=== PATIENT | male | born 1950 | race Caucasian/White ===

== ENCOUNTER 2022-02-27 11:15 | Day surgery (SDC) | payer MEDICARE ==
[2022-02-27] MEDS ORDERED: LACTATED RINGERS 1,000 ML IV SCH (11:39)
[2022-02-27] MEDS ORDERED: LIDOCAINE 1% (10MG/ML) FOR IV START INTRADERMA PRN (11:39)
[2022-02-27 11:45] VITALS: TEMP 97.4
[2022-02-27] MEDS ORDERED: PROPOFOL 10 MG/ML 20 ML VIAL IV ONE (12:05)
[2022-02-27 12:31] VITALS: RESP 20
--- NOTE | 2022-02-27 12:37 | P.PCN ---
Date of Procedure: 02/27/22 Preoperative Diagnosis: Colon cancer screening, family history of colon cancer Postoperative Diagnosis: Colon cancer screening, family history of colon cancer, colon polyp Procedure(s) Performed: Colonoscopy with polypectomy Anesthesia: MAC Surgeon: Brandi Green Pathology: other Condition: stable Disposition: PACU Indications for Procedure: Patient presents for colon cancer screening. His older sister has a history of colon cancer Description of Procedure: The patient is taken to the endoscopy suite where colonoscope is passed per rectum to the cecum. He had an excellent prep. In the cecum there is a polyp about 9-10 mm in size which is slightly irregular. It is completely removed with a polypectomy snare. It sent for pathology. The rest of the colon was without evidence of mass lesion, ulcer, stricture, diverticuli or other mucosal abnormality. Some small internal hemorrhoids were seen on retroflexion of the scope. He tolerated the procedure without difficulty and was taken to recovery room in satisfactory condition. We will call him with the report of the polypectomy and let him know what his follow-up should be. Plan - Discharge Summary Discharge Rx Participant: No New Discharge Prescriptions: No Action Turmeric/Turmeric Root Extract [Turmeric 450-50 mg Capsule] 1 cap PO DAILY L.acidoph,Paracasei, B.lactis [Probiotic] 1 cap PO DAILY Vit C/E/Zn/Coppr/Lutein/Zeaxan [Preservision Areds 2 Chew Tab] 1 tab PO DAILY Sildenafil Citrate 50 mg PO DAILY PRN PRN Reason: ERECTILE DYSFUNTION Omeprazole 20 mg PO QAM Lisinopril-Hctz 20-12.5 mg [Zestoretic 20-12.5] 1 tab PO QAM Discharge Medication List L.acidoph,Paracasei, B.lactis [Probiotic] 1 cap PO DAILY 02/23/22 [History] Lisinopril-Hctz 20-12.5 mg [Zestoretic 20-12.5] 1 tab PO QAM 02/23/22 [History] Omeprazole 20 mg PO QAM 02/23/22 [History] Sildenafil Citrate 50 mg PO DAILY PRN 02/23/22 [History] Turmeric/Turmeric Root Extract [Turmeric 450-50 mg Capsule] 1 cap PO DAILY 02/23/22 [History] Vit C/E/Zn/Coppr/Lutein/Zeaxan [Preservision Areds 2 Chew Tab] 1 tab PO DAILY 02/23/22 [History] Activity/Diet/Wound Care/Special Instructions: No driving today. The office will call with follow-up recommendations Discharge Disposition: HOME SELF-CARE
[2022-02-27 12:41] VITALS: BP 133/77; PULSE 65
== END 2022-02-27 12:55 | disposition home or self-care (01) ==
LOC: ORWHC2ENDO 11:15
PROVIDERS: ATTEND Surgery
DX: Z12.11 Encounter for screening for malignant neoplasm of colon (principal); D12.0 Benign neoplasm of cecum; K64.8 Other hemorrhoids; Z80.0 Family history of malignant neoplasm of digestive organs; Z86.010 Personal history of colon polyps; I10 Essential (primary) hypertension; N52.9 Male erectile dysfunction, unspecified; K21.9 Gastro-esophageal reflux disease without esophagitis; K42.9 Umbilical hernia without obstruction or gangrene; K43.9 Ventral hernia without obstruction or gangrene; Z85.46 Personal history of malignant neoplasm of prostate; Z90.79 Acquired absence of other genital organ(s); Z79.899 Other long term (current) drug therapy; Z98.890 Other specified postprocedural states; Z82.49 Family history of ischemic heart disease and other diseases of the circulatory system
CPT/HCPCS: 88305; 45385; J2704

== ENCOUNTER → 2022-09-15 | Outpatient (CLI) | payer MEDICARE ==
--- NOTE | 2022-09-16 11:10 | PE ---
EXAMINATION TYPE: PET CT fusion skull to thigh DATE OF EXAM: 09/15/2022 CLINICAL INDICATION:Male, 72 years old with history of C61. prostate ca; TECHNIQUE: Following the intravenous administration of 5.68 mCi of Ga-68 Illuccix (PSMA), whole bod y images are performed from the skull base to the midthigh. Images are reviewed on the computer in t he coronal, axial, and sagittal planes. Reconstructed rotating images are created on independent wor kstation and reviewed on the computer. A non-contrast CT is performed in conjunction with the PET s can. COMPARISON: CT None, PET/CT None, ultrasound prostate 01/25/2015. FINDINGS: Mediastinal SUV mean is 0.6. Hepatic parenchyma SUV mean is 4.0. SKULL BASE AND NECK: No suspicious Illuccix activity. CHEST, MEDIASTINUM, AND HILAR REGION: No suspicious Illuccix activity. ABDOMEN AND PELVIS: Right internal iliac lymph node measuring 8 mm with increased activity max SUV 3. 0. OSSEOUS STRUCTURES: Abnormal radiotracer uptake within the right iliac bone near the sacroiliac joint max SUV 2.2. No definitive CT abnormality in the area of this uptake. OTHER CT: Atherosclerosis of the arterial vasculature including the carotid bifurcations and coronary arteries. Heart is mildly enlarged for size. Cholelithiasis. Small hiatal hernia. Perinephric fat st randing bilaterally. Left fat filled inguinal hernia. The prostate is surgically absent. Fat-containing umbilical hernia. IMPRESSION: Right internal iliac lymph node and right iliac bone areas of radiotracer activity concerning for met astatic disease.
== END | disposition home or self-care (01) ==
LOC: RADPETMAIN 13:47
PROVIDERS: ATTEND Urology
DX: C61 Malignant neoplasm of prostate (principal); R97.21 Rising PSA following treatment for malignant neoplasm of prostate
CPT/HCPCS: 78815; A9596

== ENCOUNTER → 2023-01-31 | Outpatient (CLI) | payer MEDICARE ==
--- NOTE | 2023-02-01 07:19 | MR ---
EXAMINATION TYPE: MR pelvis wo/w con DATE OF EXAM: 01/31/2023 COMPARISON: Most recent PET CT September 15, 2022 HISTORY: Prostate cancer, evaluation for right iliac and pelvic mets. CONTRAST: Standard multiplanar, multisequence MRI departmental protocol images were obtained without contrast a nd with 7.5 mL intravenous Gadavist gadolinium contrast. Imaging is performed of the pelvis. FINDINGS: The area of concern on recent PET/CT right iliac bone with increased radiotracer uptake jeovany ws no definitive focal lesion on MRI. No suspicious or abnormal edema or enhancement is clearly seen at this level at the medial right iliac wing abutting the sacroiliac joint. There is a 4 mm round T2 hyperintense focus more inferiorly on coronal image 18 appears to correspond to more inferior sclerot ic lesion on recent noncontrast CT. Remainder of the osseous structures show no suspicious enhancemen t or edema. Suspicious lymph node along the right iliac chain wing correlates with axial image 21, a round 5 mm l ymph node at this level. Urinary bladder appears within normal limits. Prostate gland is surgically absent. The small bowel di latation. No concerning pelvic fluid collection. IMPRESSION: As above. No convincing MRI evidence for osseous metastatic disease. This area should be closely monitored on PET/CT study.
== END | disposition home or self-care (01) ==
LOC: RADMRIMAIN 13:05
PROVIDERS: ATTEND Radiology Radiation Oncology
DX: C61 Malignant neoplasm of prostate (principal)
CPT/HCPCS: 72197; A9585

== ENCOUNTER → 2023-12-04 | Outpatient (CLI) | payer MEDICARE ==
--- NOTE | 2023-12-05 14:18 | MR ---
EXAMINATION TYPE: MR lumbar spine wo/w con DATE OF EXAM: 12/04/2023 3:44 PM CLINICAL INDICATION:Male, 73 years old with history of M21.372 FOOT DROP, LEFT FOOT, Left side foot d rop x2 months, Hx Prostate cancer COMPARISON: Pet/CT 09/15/2022 TECHNIQUE: Multi planar, multi sequence imaging was performed utilizing: T1-weighted, T2-weighted, a nd turbo inversion recovery imaging of the lumbar spine. IV Contrast: 8 cc Gadavist. (None if empty) FINDINGS: Alignment: The lumbar vertebral bodies have preserved heights and alignment. Cord: The conus medullaris and the distal spinal cord appear unremarkable with regards to their signa l intensity and morphology. Bones/Discs: Mild degeneration changes throughout the spine with osteophyte formation and facet joint arthropathy. Modic endplate changes at a few levels are also present. Multilevel disc desiccation is present. High T2 signal/T1 signal lesion in the L2 vertebral body suggestive of vertebral body heman gioma. T12-L1: No evidence of significant spinal canal stenosis or neural foraminal stenosis. L1-L2: No evidence of significant spinal canal stenosis or neural foraminal stenosis. L2-L3: Disc bulge and facet joint arthropathy result in mild spinal canal and mild bilateral neural f oraminal stenosis. L3-L4: Disc bulge and facet joint arthropathy result in mild spinal canal and mild bilateral neural f oraminal stenosis. L4-L5: Central disc protrusion without significant spinal canal stenosis. This closely approximates t he forming the thecal sac nerves. Facet joint arthropathy with moderate bilateral neural foraminal s tenosis. L5-S1: Central disc protrusion without significant spinal canal stenosis. This closely approximates t he forming the thecal sac nerves. Facet joint arthropathy with mild bilateral neural foraminal stenos is. Other findings: None. IMPRESSION: 1. Central disc protrusions at L4-L5 and L5-S1 without significant spinal canal stenosis. These do c losely approximate forming nerves at at these levels. 2. [id number] multilevel disc degeneration changes with neural foraminal stenosis worse at L4- L5 with moderate bilateral neural foraminal stenosis. 3. No abnormal postcontrast enhancement.
== END | disposition home or self-care (01) ==
LOC: RADMRIMAIN 14:31
PROVIDERS: ATTEND Psychiatry & Neurology Neurology
DX: M51.26 Other intervertebral disc displacement, lumbar region (principal); M51.36 Other intervertebral disc degeneration, lumbar region; M99.73 Connective tissue and disc stenosis of intervertebral foramina of lumbar region; M21.372 Foot drop, left foot; R29.2 Abnormal reflex; Z85.46 Personal history of malignant neoplasm of prostate
CPT/HCPCS: 72158